=== PATIENT | male | born 1955 | race Caucasian/White ===

== ENCOUNTER 2019-05-14 11:24 | Day surgery (SDC) | payer MEDICAID ==
[2019-05-14] VITALS (8 sets, daily range): BP systolic 107–153; BP diastolic 62–80
[~2019-05-14] VITALS: Ht 182.9 cm; Wt 94.5 kg
[2019-05-14] MEDS ORDERED: normal saline 1000ml 1,000 ML IV PRN (11:50)
[2019-05-14] MEDS ORDERED: ASPI81TA52 PO (12:04)
[2019-05-14] MEDS ORDERED: SITA25TA3 PO (12:04)
[2019-05-14] MEDS ORDERED: CARV-49 PO (12:04)
[2019-05-14] MEDS ORDERED: GLIM1TAB3 PO (12:04)
[2019-05-14] MEDS ORDERED: PROC-8 PO (12:04)
[2019-05-14] MEDS ORDERED: INSU500V IJ (12:04)
[2019-05-14] MEDS ORDERED: ONDA8TAB13 PO (12:04)
[2019-05-14] MEDS ORDERED: ATOR40TA PO (12:04)
[2019-05-14] MEDS ORDERED: normal saline 1000ml 1,000 ML IV SCH (12:18)
== END 2019-05-14 14:00 | disposition home or self-care (01) ==
LOC: SSTAY O 11:24
PROVIDERS: ATTEND Radiology Diagnostic Radiology
DX: M71.311 Other bursal cyst, right shoulder (principal); C64.9 Malignant neoplasm of unspecified kidney, except renal pelvis; I10 Essential (primary) hypertension; E11.9 Type 2 diabetes mellitus without complications
CPT/HCPCS: 10160; 76942; J7030